=== PATIENT | female | born 1955 | race African-American/Black ===

== ENCOUNTER 2017-04-16 20:33 | Emergency (ER) | payer MEDICARE, MEDICAID ==
[~2017-04-16] VITALS: Ht 170.2 cm; Wt 74.0 kg
[~2017-04-16 20:33] MED LIST: ALBUAER3 INH; ALEV220T14 PO; ALPR.5 PO; ASPI81TA23 PO; ATAZ200 PO; BENZ100 PO; CARV25TA PO; CELE20TA PO; CLON0.2T PO; DOCU100C15 PO; EPZITAB3 PO; FLUT1SPR5 EACH NARE; HYDR-3133 PO; LEVA500T33 PO; METF1000 PO; NEBUKIT5; NEBULIZER1 MI1; ONDA4TAB7 SL; OXYC-392 PO; OXYGENTANK NAS.CANULA; PALI1TAB2 PO; PERI8.6T PO; PRED20 PO; PREV30CA36 PO; ROSU1TAB4 PO; VALA1TAB PO
[2017-04-16 20:34] VITALS: BP 162/74; PULSE 91; RESP 16; TEMP 98.6; O2SAT 98
[2017-04-16] MEDS ORDERED: AMLO10TA2 PO (21:40)
[2017-04-16] MEDS ORDERED: MIRTA15 PO (21:40)
[2017-04-16] MEDS ORDERED: INVE3TAB2 PO (21:40)
[2017-04-16] MEDS ORDERED: FURO20TA PO (21:40)
[2017-04-16] MEDS ORDERED: SODIUM CHLOR 0.9% 1000 ML INJ 1,000 ML IV ONE (21:45)
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
[2017-04-16 22:39] LABS: AUTOMATED NEUTROPHIL # 6.8 TH/MM3 (1.8-7.7); BASOPHIL % 0.5 % (0.0-2.0); EOSINOPHIL # 0.1 TH/MM3 (0-0.4); EOSINOPHIL % 1.1 % (0.0-4.0); HEMATOCRIT 40.3 % (35.0-46.0); HEMOGLOBIN 13.1 GM/DL (11.6-15.3); LYMPH % 24.8 % (9.0-44.0); LYMPHOCYTE # 2.5 TH/MM3 (1.0-4.8); MEAN CELL VOLUME 95.5 FL (80.0-100.0); MEAN CORPUSCULAR HGB CONC 32.4 % (32.0-36.0); MEAN PLATELET VOLUME 9.4 FL (7.0-11.0); MONO % 5.8 % (0.0-8.0); MONOCYTE # 0.6 TH/MM3 (0-0.9); NEUT % 67.8 % (16.0-70.0); PLATELET COUNT 255 TH/MM3 (150-450); RED BLOOD COUNT 4.22 MIL/MM3 (4.00-5.30); RED CELL DISTRIBUTION WIDTH 15.1 % (11.6-17.2); WHITE BLOOD COUNT 10.1 TH/MM3 (4.0-11.0)
[2017-04-16 22:39] LABS: BACTERIA, URINE RARE /hpf; BILIRUBIN, URINE NEG (NEG); BLOOD, URINE NEG (NEG); GLUCOSE,URINE 1000 mg/dL (NEG); KETONE, URINE NEG (NEG); MUCUS URINE FEW /lpf (OCC); NITRITE,URINE NEG (NEG); SQUAMOUS EPITHELIAL CELL URINE 2 /hpf (0-5); URINE COLOR LIGHT-YELLOW (YELLW/STRAW); URINE LEUKOCYTE ESTERASE NEG (NEG)
[2017-04-16 22:56] LABS: ALBUMIN 3.6 GM/DL (3.4-5.0); AST (GOT) 29 U/L (15-37); BICARBONATE 31.5 MEQ/L (21.0-32.0); BLOOD UREA NITROGEN 38 MG/DL (7-18); CALCIUM 8.9 MG/DL (8.5-10.1); CHLORIDE 87 MEQ/L (98-107); CREATININE 2.18 MG/DL (0.50-1.00); GLOMERULAR FILTRATION RATE 28 ML/MIN (>89); MAGNESIUM 2.6 MG/DL (1.5-2.5); SODIUM (NA) 128 MEQ/L (136-145)
[2017-04-16 23:02] LABS: ALKALINE PHOSPHATASE 138 U/L (45-117); ALT (GPT) 45 U/L (10-53); TOTAL BILIRUBIN ADULT 0.3 MG/DL (0.2-1.0); TOTAL PROTEIN 8.4 GM/DL (6.4-8.2)
[2017-04-16 23:03] LABS: GLUCOSE,RANDOM 630 MG/DL (74-106)
--- NOTE | 2017-04-16 23:10 | PD ---
Physical Exam Date Seen by Provider: Apr 16, 2017 Time Seen by Provider: 23:09 Narrative GENERAL: Well-developed, pleasant elderly female in no acute distress no respiratory distress GCS 15 SKIN: Warm and dry. HEAD: Normocephalic. EYES: No scleral icterus. No injection or drainage. ENT: Edentulous NECK: Supple, trachea midline. No JVD or lymphadenopathy. CARDIOVASCULAR: Regular rate and rhythm without murmurs, gallops, or rubs. RESPIRATORY: Breath sounds equal bilaterally. No accessory muscle use. GASTROINTESTINAL: Abdomen soft, non-tender, nondistended. MUSCULOSKELETAL: No cyanosis, or edema. BACK: Nontender without obvious deformity. No CVA tenderness. Data Data Last Documented VS Vital Signs Date Time Temp Pulse Resp B/P (MAP) Pulse Ox O2 Delivery O2 Flow Rate FiO2 04/16/17 20:34 98.6 91 16 162/74 (103) 98 Room Air Orders Orders Complete Blood Count With Diff (04/16/17 21:43) Comprehensive Metabolic Panel (04/16/17 21:43) Urinalysis - C+S If Indicated (04/16/17 21:43) Magnesium (Mg) (04/16/17 21:43) Iv Access Insert/Monitor (04/16/17 21:43) Ecg Monitoring (04/16/17 21:43) Oximetry (04/16/17 21:43) Blood Glucose (04/16/17 21:43) Beta Hydroxybutyrate (Acetone) (04/16/17 21:43) Sodium Chlor 0.9% 1000 Ml Inj (Ns 1000 M (04/16/17 21:45) Insulin Human Regular Inj (Novolin R Inj (04/16/17 23:15) Blood Glucose (04/16/17 23:03) Ed Discharge Order (04/17/17 02:04) Labs Laboratory Tests Test 04/16/17 22:00 04/16/17 22:06 White Blood Count 10.1 TH/MM3 Red Blood Count 4.22 MIL/MM3 Hemoglobin 13.1 GM/DL Hematocrit 40.3 % Mean Corpuscular Volume 95.5 FL Mean Corpuscular Hemoglobin 31.0 PG Mean Corpuscular Hemoglobin Concent 32.4 % Red Cell Distribution Width 15.1 % Platelet Count 255 TH/MM3 Mean Platelet Volume 9.4 FL Neutrophils (%) (Auto) 67.8 % Lymphocytes (%) (Auto) 24.8 % Monocytes (%) (Auto) 5.8 % Eosinophils (%) (Auto) 1.1 % Basophils (%) (Auto) 0.5 % Neutrophils # (Auto) 6.8 TH/MM3 Lymphocytes # (Auto) 2.5 TH/MM3 Monocytes # (Auto) 0.6 TH/MM3 Eosinophils # (Auto) 0.1 TH/MM3 Basophils # (Auto) 0.0 TH/MM3 CBC Comment DIFF FINAL Differential Comment Blood Urea Nitrogen 38 MG/DL Creatinine 2.18 MG/DL Random Glucose 630 MG/DL Total Protein 8.4 GM/DL Albumin 3.6 GM/DL Calcium Level 8.9 MG/DL Magnesium Level 2.6 MG/DL Alkaline Phosphatase 138 U/L Aspartate Amino Transf (AST/SGOT) 29 U/L Alanine Aminotransferase (ALT/SGPT) 45 U/L Total Bilirubin 0.3 MG/DL Sodium Level 128 MEQ/L Potassium Level 4.2 MEQ/L Chloride Level 87 MEQ/L Carbon Dioxide Level 31.5 MEQ/L Anion Gap 10 MEQ/L Estimat Glomerular Filtration Rate 28 ML/MIN B-Hydroxybutyrate 0.18 MMOL/L Urine Color LIGHT-YELLOW Urine Turbidity CLEAR Urine pH 5.0 Urine Specific [place] 1.028 Urine Protein NEG mg/dL Urine Glucose (UA) 1000 mg/dL Urine Ketones NEG mg/dL Urine Occult Blood NEG Urine Nitrite NEG Urine Bilirubin NEG Urine Urobilinogen LESS THAN 2.0 MG/DL Urine Leukocyte Esterase NEG Urine RBC LESS THAN 1 /hpf Urine WBC 2 /hpf Urine Squamous Epithelial Cells 2 /hpf Urine Bacteria RARE /hpf Urine Mucus FEW /lpf Microscopic Urinalysis Comment CULT NOT INDICATED [facility] Medical Record Reviewed: Yes Supervised Visit with KATHRYN: Yes Interpretation(s) CBC & BMP Diagram 04/16/17 22:00 Total Protein 8.4 H, Albumin 3.6, Calcium Level 8.9, Magnesium Level 2.6 H, Alkaline Phosphatase 138 H, Aspartate Amino Transf (AST/SGOT) 29, Alanine Aminotransferase (ALT/SGPT) 45, Total Bilirubin 0.3 Vital Signs Date Time Temp Pulse Resp B/P (MAP) Pulse Ox O2 Delivery O2 Flow Rate FiO2 04/16/17 20:34 98.6 91 16 162/74 (103) 98 Room Air Beta hydroxybutyric acid 0.18 not elevated Urinalysis: Glucosuria otherwise eyes normal range Differential Diagnosis hyperglycemia;dka; dehydration;electrolyte disturbance Narrative Course @ 2300 assumed direct care of patient; 7-year-old female with multiple chronic medical conditions as well as type 2 diabetes for which she is prescribed metformin 1000 mg twice daily. Patient admits to not take the medication on a regular basis and not taking the dose that is prescribed for her as she did not know she needed to take the entire dose of the medication but did not like to take medication as the pill size was too large. Patient is also been increasing her consumption of peppermint candies on a regular basis because she feels like her mouth is dry as well as eating pie and sugary sweets over the holidays. Because of increased thirst and increased urination finally decided to check her blood sugar and was identified to have a high blood sugars and decided come to the emergency room for evaluation. Patient denies any other concerns or complaints no report of chest pain shortness breath nausea vomiting referred neck jaw back shoulder arm pain or abdominal pain. Patient has received a 500 cc bolus of normal saline as patient was noted with last hospitalization to have poor ejection fraction and recent diagnosis of CHF. Patient also received a one-time dose of regular insulin and is having blood sugars checked every hour 3. Patient with family at bedside requesting information regarding [employer] diet information. Patient is otherwise with no concerns or complaints no recent illness no recent fever no recent injury. @ 12:45 AM B, patient given healthy choice meal and recheck of BG at 1 hour @ 0200BG 264 patient feels well and is stable for outpatient management Diagnosis Primary Impression: Hyperglycemia due to type 2 diabetes mellitus Additional Impression: Renal insufficiency Referrals: Primary Care Physician 3 days Schedule appointment with primary care provider as planned Patient Instructions: General Instructions, Meal Planning with Diabetes Exchanges (DC) Additional Instruction: Take prescription medication as prescribed Follow-up ADA diet Increase fluid hydration Keep scheduled follow-up appointment with primary care provider as planned Return to the emergency department for a concerns or change in condition Monitor blood sugars closely Med/Other Pt SpecificInfo: No Change to Meds Disposition: 01 DISCHARGE HOME Condition: Stable Luzmaria Rubio MD Apr 16, 2017 23:10
[2017-04-16] MEDS ORDERED: INSULIN HUMAN REGULAR 1,000 UNITS/10 ML VIAL IV PUSH ONE (23:15)
[2017-04-17 02:10] VITALS: BP 140/75
[2017-04-20] MEDS ORDERED: SYMB160A INH (09:11)
[2017-04-20] MEDS ORDERED: GLIP10TA6 PO (09:18)
[2017-04-20] MEDS ORDERED: BENZ1CAP54 PO (09:23)
== END 2017-04-17 02:15 | disposition home or self-care (01) ==
LOC: NEPC 20:33
DX: E11.65 Type 2 diabetes mellitus with hyperglycemia (principal); N28.9 Disorder of kidney and ureter, unspecified; F31.9 Bipolar disorder, unspecified; I10 Essential (primary) hypertension; F20.9 Schizophrenia, unspecified; J45.909 Unspecified asthma, uncomplicated; Z86.19 Personal history of other infectious and parasitic diseases; Z86.73 Personal history of transient ischemic attack (TIA), and cerebral infarction without residual deficits; Z21 Asymptomatic human immunodeficiency virus [HIV] infection status
CPT/HCPCS: 80053; 81001; 82010; 83735; 85025; 96361; 96374; 99284; J1815; J7030

== ENCOUNTER 2017-05-08 13:48 | Inpatient (IN) | payer MEDICARE, MEDICAID ==
[2017-05-08] VITALS (10 sets, daily range): BP systolic 109–163; BP diastolic 53–80; PULSE 65–82; RESP 16–22; TEMP 97.7–98.6; O2SAT 95–100
[~2017-05-08] VITALS: Ht 170.2 cm; Wt 72.7 kg
[~2017-05-08 13:48] MED LIST changes: -ATAZ200 PO; -BENZ100 PO; +BENZ1CAP54 PO; -EPZITAB3 PO; +FURO20TA PO; +GLIP10TA6 PO; +INVE3TAB2 PO; -LEVA500T33 PO; +MIRTA15 PO; -PERI8.6T PO; -PRED20 PO; +SYMB160A INH; -VALA1TAB PO
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
[2017-05-08] MEDS ORDERED: ONDANSETRON HCL 4 MG/2 ML VIAL IVP ONE (14:45)
[2017-05-08] MEDS ORDERED: SODIUM CHLORIDE 0.9% FLUSH 10 ML FLUSH IVF PRN (14:45)
[2017-05-08 15:18] LABS: AUTOMATED NEUTROPHIL # 5.6 TH/MM3 (1.8-7.7); BASOPHIL % 0.6 % (0.0-2.0); EOSINOPHIL # 0.2 TH/MM3 (0-0.4); EOSINOPHIL % 2.5 % (0.0-4.0); HEMATOCRIT 39.5 % (35.0-46.0); LYMPH % 23.2 % (9.0-44.0); MEAN CELL VOLUME 94.4 FL (80.0-100.0); MEAN CORPUSCULAR HGB CONC 32.9 % (32.0-36.0); MEAN PLATELET VOLUME 8.6 FL (7.0-11.0); MONO % 8.5 % (0.0-8.0); MONOCYTE # 0.7 TH/MM3 (0-0.9); NEUT % 65.2 % (16.0-70.0); PLATELET COUNT 292 TH/MM3 (150-450); RED BLOOD COUNT 4.19 MIL/MM3 (4.00-5.30); RED CELL DISTRIBUTION WIDTH 15.2 % (11.6-17.2); WHITE BLOOD COUNT 8.5 TH/MM3 (4.0-11.0)
[2017-05-08 15:28] LABS: INTERNATIONAL NORMALIZED RATIO 1.1 RATIO
--- NOTE | 2017-05-08 15:33 | RADRPT ---
EXAM DATE/TIME: 05/08/2017 14:45 [place] COMPARISON: CHEST SINGLE AP, February 25, 2016, 6:36. INDICATIONS : Weakness. Short of breath. MEDICAL HISTORY : Hypertension. HIV. Diabetes mellitus type II. SURGICAL HISTORY : None. ENCOUNTER: Initial ACUITY: 1 day PAIN SCORE: 0/10 LOCATION: Bilateral chest FINDINGS: Single AP view of the chest. The lungs are clear. Cardiomediastinal silhouette within normal limits. No evidence of pleural effusion or pneumothorax. CONCLUSION: No acute cardiopulmonary disease identified. Messi Mensah MD on May 08, 2017 at 15:29 Board Certified Radiologist. This report was verified electronically.
[2017-05-08 15:41] LABS: ALBUMIN 3.6 GM/DL (3.4-5.0); ALT (GPT) 20 U/L (10-53); AST (GOT) 21 U/L (15-37); BICARBONATE 24.9 MEQ/L (21.0-32.0); BLOOD UREA NITROGEN 26 MG/DL (7-18); CALCIUM 9.5 MG/DL (8.5-10.1); CHLORIDE 93 MEQ/L (98-107); CREATININE 1.49 MG/DL (0.50-1.00); GLOMERULAR FILTRATION RATE 43 ML/MIN (>89); GLUCOSE,RANDOM 126 MG/DL (74-106); SODIUM (NA) 133 MEQ/L (136-145)
[2017-05-08 15:43] LABS: ALKALINE PHOSPHATASE 83 U/L (45-117); TOTAL BILIRUBIN ADULT 0.4 MG/DL (0.2-1.0); TOTAL PROTEIN 8.4 GM/DL (6.4-8.2); TROPONIN I LESS THAN 0.02 NG/ML (0.02-0.05)
[2017-05-08] MEDS ORDERED: PIPERACIL-TAZO 4.5 GM PREMIX 100 ML IV STA (16:22)
[2017-05-08] MEDS ORDERED: VANCOMYCIN INJ 1,000 MG in SODIUM CHLOR 0.9% 250 ML INJ 250 ML IV STA (16:22)
[2017-05-08] MEDS ORDERED: SODIUM CHLOR 0.9% 1000 ML INJ 1,000 ML IV ONE (16:30)
[2017-05-08 17:49] LABS: BACTERIA, URINE OCC /hpf; BILIRUBIN, URINE NEG (NEG); BLOOD, URINE NEG (NEG); GLUCOSE,URINE TRACE mg/dL (NEG); HYALINE CAST, URINE 37 /lpf (RARE); KETONE, URINE NEG (NEG); MUCUS URINE FEW /lpf (OCC); NITRITE,URINE NEG (NEG); PH, URINE 5.5 (5.0-8.5); SQUAMOUS EPITHELIAL CELL URINE 7 /hpf (0-5); URINE COLOR YELLOW (YELLW/STRAW); URINE LEUKOCYTE ESTERASE NEG (NEG)
[2017-05-08] MEDS ORDERED: IOHEXOL 350 MG/ML 10 ML VIAL (for RAD DIAG) IVCONTRAST ONE (18:40)
--- NOTE | 2017-05-08 18:49 | RADRPT ---
EXAM DATE/TIME: 05/08/2017 18:23 CORRECTION Corrected on: May 08, 2017; [facility] COMPARISON: No previous studies available for comparison. INDICATIONS : Lower abdominal pain today. IV CONTRAST: 70 cc Omnipaque 350 (iohexol) IV ORAL CONTRAST: No oral contrast ingested. RADIATION DOSE: 6.64 CTDIvol (mGy) MEDICAL HISTORY : HIV. Hepatitis C. Hypertension. SURGICAL HISTORY : Hysterectomy. ENCOUNTER: Initial ACUITY: 1 day PAIN SCALE: 7/10 LOCATION: Bilateral lower quadrant TECHNIQUE: Volumetric scanning of the abdomen and pelvis was performed. Using automated exposure control and ad justment of the mA and/or kV according to patient size, radiation dose was kept as low as reasonably achievable to obtain optimal diagnostic quality images. DICOM format image data is available electro nically for review and comparison. FINDINGS: LOWER LUNGS: The visualized lower lungs are clear. LIVER: Homogeneous density without lesion. There is no dilation of the biliary tree. No calcified gallston es. SPLEEN: Normal size without lesion. PANCREAS: Within normal limits. KIDNEYS: Normal in size and shape. There is no mass, stone or hydronephrosis. ADRENAL GLANDS: Within normal limits. VASCULAR: Tortuosity and atherosclerotic plaque of the abdominal aorta. No aneurysm. Apparent mild edema around the aorta at the level of the renal artery and superior mesenteric artery branches. There appears to be some poor filling of these vessels, especially the right renal artery. BOWEL/MESENTERY: The stomach, small bowel, and colon demonstrate no acute abnormality. There is no free intraperitone al air or fluid. Normal appendix. ABDOMINAL WALL: Within normal limits. RETROPERITONEUM: There is no lymphadenopathy. BLADDER: No wall thickening or mass. REPRODUCTIVE: Within normal limits. INGUINAL: There is no lymphadenopathy or hernia. MUSCULOSKELETAL: No acute bony abnormality demonstrated. CONCLUSION: Potential focal aortitis or branch vessel thrombosis the of the upper abdominal aorta. CTA of the abd omen with contrast is recommended. Please see above. Report called to Dr. Chanel. Jonathan Carmen MD on May 08, 2017 at 18:45 Board Certified Radiologist. This report was verified electronically. Jonathan Carmen MD on May 08, 2017 at 18:53 Board Certified Radiologist. This report was verified electronically.
--- NOTE | 2017-05-08 19:22 | RADRPT ---
EXAM DATE/TIME: 05/08/2017 18:24 [facility] COMPARISON: CT ABDOMEN & PELVIS W CONTRAST, May 08, 2017, 18:23. INDICATIONS : Abdominal pain; rule out occlusion. IV CONTRAST: 70 cc Omnipaque 350 (iohexol) IV ; Cumulative dose for multiple exams. ORAL CONTRAST: No oral contrast ingested. RADIATION DOSE: CTDIvol (mGy) ; Reconstructed from previous dataset, no dose MEDICAL HISTORY : HIV, hepatitis C, hypertension SURGICAL HISTORY : Hysterectomy ENCOUNTER: Initial ACUITY: 1 day PAIN SCALE: 6/10 LOCATION: abdomen TECHNIQUE: Volumetric scanning was performed using a multi-row detector CT scanner. The data was post processed with a variety of visualization algorithms including full volume maximum intensity projection, multi -planar sliding thin slab reformation, curved planar reformation, and surface rendering techniques. Using automated exposure control and adjustment of the mA and/or kV according to patient size, radiat ion dose was kept as low as reasonably achievable to obtain optimal diagnostic quality images. DICOM format image data is available electronically for review and comparison. FINDINGS: Patient's GFR is 43. Multiplanar reconstructions were done of the original data set. Thoracic aorta i s mildly tortuous. There is patchy atherosclerosis of the aorta and branch vessels without evidence o f occlusion. There are a few small retrocrural and aortocaval lymph nodes. No fluid collections are d emonstrated. CONCLUSION: Additional contrast was not injected secondary to poor GFR. The multiplanar reconstructions indicate atherosclerosis and tortuosity of the abdominal aorta and branch vessels but without evidence of infl ammatory changes or acute thrombosis. Bilateral renal parenchyma enhances normally. There are no seco ndary changes of the bowel to suggest ischemia. There is shotty retroperitoneal adenopathy. Nothing p athologic appearing by size criteria. Jonathan Carmen MD on May 08, 2017 at 19:14 Board Certified Radiologist. This report was verified electronically.
[2017-05-08] MEDS ORDERED: ENOXAPARIN SODIUM 40 MG/0.4 ML SYRINGE SQ SCH (20:00)
[2017-05-08] MEDS ORDERED: SODIUM CHLORIDE 0.9% FLUSH 10 ML FLUSH IV FLUSH PRN (20:00)
[2017-05-08] MEDS ORDERED: BISACODYL 10 MG SUPP RECTAL PRN (20:00)
[2017-05-08] MEDS: ENOXAPARIN SODIUM 30 MG/0.3 ML SYRINGE SQ SCH (20:00)
[2017-05-08] MEDS ORDERED: LACTULOSE SYRUP 20 GM/30 ML CUP PO PRN (20:00)
[2017-05-08] MEDS ORDERED: ACETAMINOPHEN 325 MG TAB PO PRN (20:00)
[2017-05-08] MEDS ORDERED: NALOXONE HCL 0.4 MG/ML AMP IV PUSH PRN (20:00)
[2017-05-08] MEDS ORDERED: MAGNESIUM HYDROXIDE SUSP 30 ML CUP PO PRN (20:00)
[2017-05-08] MEDS ORDERED: SENNOSIDES 8.6 MG TAB PO PRN (20:00)
--- NOTE | 2017-05-08 20:28 | HHI.HP ---
[facility] Service Family Medicine Primary Care Physician Moreno Cannon MD Admission Diagnosis lactic acidosis, abdominal pain, syncope Diagnoses: Chief Complaint: Passed out International Travel<30 Days: No Contact w/Intl Traveler<30days: No Known Affected Area: No History of Present Illness 61-year-old female with past medical history of HIV, hepatitis C, coronary artery disease, diabetes, hypertension, and COPD presenting with a syncopal episode occurring this morning at mosque in the context of 3 days of nausea and vomiting with meals. In mosque this morning, she felt a sudden heat and then felt very fatigued and lightheaded. The next thing she remembers was waking up in the arms of her crm analyst's . She did not hit her head. She did not have any prodromal symptoms including palpitations, chest pain, shortness of breath. For the last few days she has been having nausea and vomiting after the majority of her meals. Mild diffuse abdominal queasiness, but no focal abdominal pain. There have been no changes to her medications, she has not started taking anything new [id number] since her most recent office visit with Dr. Cannon on 04/28. (Umair Davidson MD) Review of Systems Constitutional: COMPLAINS OF: Fatigue, DENIES: Fever, Chills, Dizziness Endocrine: DENIES: Heat/cold intolerance, Polydipsia, Polyuria Eyes: COMPLAINS OF: Blurred vision (not new), DENIES: Eye pain Ears, nose, mouth, throat: DENIES: Nasal discharge, Throat pain Respiratory: COMPLAINS OF: Cough (chronic), DENIES: Wheezing, Sputum production , Shortness of breath Cardiovascular: COMPLAINS OF: Syncope, DENIES: Chest pain, Palpitations, Dyspnea on Exertion, Lower Extremity Edema, Orthopnea Gastrointestinal: COMPLAINS OF: Nausea, Vomiting, DENIES: Abdominal pain, Diarrhea Genitourinary: DENIES: Abnormal vaginal bleeding, Urinary frequency, Dysuria, Vaginal discharge Musculoskeletal: COMPLAINS OF: Joint pain (h/o arthritis) Integumentary: DENIES: Rash Hematologic/lymphatic: DENIES: Bruising Neurologic: DENIES: Headache, Localized weakness Psychiatric: DENIES: Confusion, Mood changes (Umair Davidson MD) Past Family Social History Past Medical History HIV (sees ID: Dr. Waddell) ) Hep C depression (sees psychiatrist: Titi Culp ([phone]) Schizoaffective disorder Diabetes HSV Anemia/neutropenia GERD Hypertension NM x1 CHF COPD - Hypoxia requiring oxygen Past Surgical History Hysterectomy Colonoscopy/EGD/Pap smear: 2012 all negative Reported Medications Reported Meds & Active Scripts Active Benzonatate 100 Mg Cap 100 Mg PO TID PRN Symbicort Inh (Budesonide/Formoterol Fumarate) 160-4.5 Mcg/Act Aero 2 Puff INH Q12HR Flonase Nasal [place] (Fluticasone Nasal [place]) 50 Mcg/Act [place] 50 Mcg EACH NARE BID Xanax (Alprazolam) 0.5 Mg Tab 0.5 Mg PO Q6H PRN Nebulizer 1 Mis Mis 1 Ea .ROUTE DIRECTED Nebulizer Kit/Tubing/Mout (N/A) 1 Kit Kit 1 Kit .ROUTE DIRECTED Oxygen tank (Oxygen) 1 Ea Tank 2 Liter LUCILLE.CANULA CONTINUOUS Oxygen Concentrator Portable Gaseous 2 L/min via Nasal Cannula Continuous For 99 months Hydroxyzine HCl 25 Mg Tab 25 Mg PO HS PRN Clonidine (Clonidine HCl) 0.2 Mg Tab 0.2 Mg PO DAILY Aspirin EC (Aspirin) 81 Mg Tabdr 81 Mg PO DAILY Reported Glipizide 10 Mg Tab 10 Mg PO BIDAC Take 30 minutes before a meal Mirtazapine 15 Mg Tab 15 Mg PO HS Furosemide 20 Mg Tab 20 Mg PO DAILY Oxycodone (Oxycodone HCl) 5 Mg Tab 5 Mg PO BID PRN Aleve Arthritis (Naproxen Sodium) 220 Mg Tab 220 Mg PO BID Proair Hfa 8.5 GM Inh (Albuterol Sulfate) 90 Mcg/Act Aer 2 Puff INH Q4-6H PRN 108 mcg/actuation Celexa (Citalopram Hydrobromide) 20 Mg Tab 20 Mg PO DAILY Paliperidone ER 3 Mg Tab 3 Mg PO DAILY Prevacid (Lansoprazole) 30 Mg Capdr 30 Mg PO BID Ondansetron Odt 4 Mg Tab 4 Mg SL Q6HR PRN Rosuvastatin (Rosuvastatin Calcium) 5 Mg Tab 5 Mg PO DIRECTED Take 1 tablet PO on Tue/Tuesday Carvedilol 25 Mg Tab 25 Mg PO BID Metformin (Metformin HCl) 1,000 Mg Tab 1,000 Mg PO BIDPC With meals Docusate Sodium 100 Mg Cap 100 Mg PO BID Genvoya 1 tab PO daily (Umair Davidson MD) Allergies: Coded Allergies: No Known Allergies (Verified Adverse Reaction, Unknown, 05/08/17) Active Ordered Medications Current Medications Medications (Trade) Dose Ordered Sig/Herbert Route Start Time Stop Time Status Last Admin (NS Flush) 2 ml UNSCH PRN IVF 05/08/17 14:45 05/08/17 14:55 (NS Flush) 2 ml UNSCH PRN IV FLUSH 05/08/17 20:00 (NS Flush) 2 ml BID IV FLUSH 05/08/17 21:00 (Tylenol) 650 mg Q4H PRN PO 05/08/17 20:00 (Narcan Inj) 0.4 mg UNSCH PRN IV PUSH 05/08/17 20:00 (Lizeth-Colace) 1 tab BID PO 05/08/17 21:00 (Milk Of Magnesia Liq) 30 ml Q12H PRN PO 05/08/17 20:00 (Senokot) 17.2 mg Q12H PRN PO 05/08/17 20:00 (Dulcolax Supp) 10 mg DAILY PRN RECTAL 05/08/17 20:00 (Lactulose Liq) 30 ml DAILY PRN PO 05/08/17 20:00 (Lovenox Inj) 30 mg Q24H SQ 05/08/17 20:00 (Proair Hfa Inh) 2 puff Q4H PRN INH 05/08/17 20:30 (Xanax) 0.5 mg Q6H PRN PO 05/08/17 20:30 (Ecotrin Ec) 81 mg DAILY PO 05/09/17 09:00 (Symbicort 160-4.5 Mcg Inh) 2 puff Q12HR INH 05/08/17 21:00 (Coreg) 25 mg BID PO 05/08/17 21:00 (CeleXA) 20 mg DAILY PO 05/09/17 09:00 (Catapres) 0.2 mg DAILY PO 05/09/17 09:00 (Lasix) 20 mg DAILY PO 05/09/17 09:00 (Remeron) 15 mg HS PO 05/08/17 21:00 (Invega Er) 3 mg DAILY PO 05/09/17 09:00 (Flonase Lucille Spr) 1 spray BID NASAL 05/08/17 21:00 (Protonix) 40 mg BID PO 05/08/17 21:00 (Naprosyn) 250 mg BID PO 05/08/17 21:00 (Lipitor) 10 mg WeFr@0900 PO 05/11/17 09:00 (D50w (Vial) Inj) 50 ml UNSCH PRN IV PUSH 05/08/17 20:30 (Glucagon Inj) 1 mg UNSCH PRN OTHER 05/08/17 20:30 (Levemir Inj) 10 units Q12HR SQ 05/08/17 21:00 (NovoLOG INJ) 3 units TIDAC SQ 05/09/17 08:00 Family History Negative for stroke Social History Lives with at home. Not working. Disabled. (Umair Davidson MD) Physical Exam Vital Signs Vital Signs Date Time Temp Pulse Resp B/P (MAP) Pulse Ox O2 Delivery O2 Flow Rate FiO2 05/08/17 17:12 71 16 134/64 (87) 95 Nasal Cannula 2.00 05/08/17 16:00 68 22 125/67 (86) 95 Nasal Cannula 2.00 05/08/17 15:00 66 16 112/60 (77) 98 Nasal Cannula 2.00 05/08/17 14:35 16 100 Room Air 05/08/17 14:31 68 16 99 Room Air 05/08/17 14:23 98.2 65 16 109/53 (71) 96 Room Air Physical Exam GENERAL: WDWN late middle-aged black woman sitting up in bed, comfortable, NAD SKIN: No rashes, ecchymoses or lesions. Cool and dry. HEAD: NC/AT EYES: PERRL. EOMI. No conjunctival injection or drainage. ENT: MMM, OP without erythema, tonsillar swelling, or exudate. Small cataract in R eye. NECK: Supple, no lymphadenopathy. No JVD. CARDIOVASCULAR: NRRR. Normal S1/S2. Soft, blowing, 2/6 DIONNE at LUSB. No carotid bruit. RESPIRATORY: Diffuse inspiratory wheezes. No crackles. Normal rate and effort with good air flow bilaterally. GASTROINTESTINAL: Abdomen soft, non-distended, minimally tender to palpation diffusely. No hepato-splenomegaly or palpable masses. MUSCULOSKELETAL: Extremities without clubbing, cyanosis, or edema. NEUROLOGICAL: Awake and alert. Cranial nerves II through XII grossly intact. Moves all extremities without difficulty. Strength 5/5 in all major muscle groups. Sensation to light touch intact throughout. Normal speech. Laboratory Laboratory Tests Test 05/08/17 14:40 05/08/17 16:45 05/08/17 17:05 05/08/17 20:08 White Blood Count 8.5 Red Blood Count 4.19 Hemoglobin 13.0 Hematocrit 39.5 Mean Corpuscular Volume 94.4 Mean Corpuscular Hemoglobin 31.0 Mean Corpuscular Hemoglobin Concent 32.9 Red Cell Distribution Width 15.2 Platelet Count 292 Mean Platelet Volume 8.6 Neutrophils (%) (Auto) 65.2 Lymphocytes (%) (Auto) 23.2 Monocytes (%) (Auto) 8.5 Eosinophils (%) (Auto) 2.5 Basophils (%) (Auto) 0.6 Neutrophils # (Auto) 5.6 Lymphocytes # (Auto) 2.0 Monocytes # (Auto) 0.7 Eosinophils # (Auto) 0.2 Basophils # (Auto) 0.0 CBC Comment DIFF FINAL Differential Comment Prothrombin Time 11.0 Prothromb Time International Ratio 1.1 Activated Partial Thromboplast Time 23.7 Blood Urea Nitrogen 26 Creatinine 1.49 Random Glucose 126 Total Protein 8.4 Albumin 3.6 Calcium Level 9.5 Magnesium Level 2.0 Alkaline Phosphatase 83 Aspartate Amino Transf (AST/SGOT) 21 Alanine Aminotransferase (ALT/SGPT) 20 Total Bilirubin 0.4 Sodium Level 133 Potassium Level 3.4 Chloride Level 93 Carbon Dioxide Level 24.9 Anion Gap 15 Estimat Glomerular Filtration Rate 43 Lactic Acid Level 4.1 3.5 Total Creatine Kinase 102 Creatine Kinase MB 1.1 Troponin I LESS THAN 0.02 Urine Color YELLOW Urine Turbidity HAZY Urine pH 5.5 Urine Specific [place] 1.021 Urine Protein 30 Urine Glucose (UA) TRACE Urine Ketones NEG Urine Occult Blood NEG Urine Nitrite NEG Urine Bilirubin NEG Urine Urobilinogen 2.0 Urine Leukocyte Esterase NEG Urine RBC 1 Urine WBC 3 Urine Squamous Epithelial Cells 7 Urine Bacteria OCC Urine Hyaline Casts 37 Urine Mucus FEW Microscopic Urinalysis Comment CULT NOT INDICATED Date/Time Source Procedure Growth Status 05/08/17 17:05 Blood Peripheral Aerobic Blood Culture Pending Received 05/08/17 17:05 Blood Peripheral Anaerobic Blood Culture Pending Received (Umair Davidson MD) Result Diagram: 05/08/17 1440 05/08/17 1440 Imaging Last Impressions Chest X-Ray 05/08/17 1432 Signed Impressions: Service Date/Time: Monday, May 08, 2017 14:45 - CONCLUSION: No acute cardiopulmonary disease identified. Messi Mensah MD Abdomen/Pelvis CT 05/08/17 0000 Signed Impressions: Service Date/Time: Monday, May 08, 2017 18:24 - CONCLUSION: Additional contrast was not injected secondary to poor GFR. The multiplanar reconstructions indicate atherosclerosis and tortuosity of the abdominal aorta and branch vessels but without evidence of inflammatory changes or acute thrombosis. Bilateral renal parenchyma enhances normally. There are no secondary changes of the bowel to suggest ischemia. There is shotty retroperitoneal adenopathy. Nothing pathologic appearing by size criteria. Jonathan Carmen MD (Umair Davidson MD) Septic Shock Reassessment Septic shock perfusion: reassessment completed (Umair Davidson MD) Caprini VTE Risk Assessment Caprini VTE Risk Assessment: Mod/High Risk (score >= 2) (Umair Davidson MD) Assessment and Plan Assessment and Plan 61-year-old female with past medical history of HIV, hepatitis C, coronary artery disease, diabetes, hypertension, and COPD presenting with: (Umair Davidson MD) Attending Attestation THIS CASE WAS DISCUSSED WITH THE RESIDENT PHYSICIANS. I HAVE REVIEWED THE RECORD AND AGREE WITH THE ABOVE NOTE AND PLAN OF CARE WAS DISCUSSED. I HAVE AUTHORIZED THE ORDER FOR ADMISSION TO AN IN-PATIENT STATUS. (Moreno Cnanon MD) Problem List: (1) Syncope ICD Codes: R55 - Syncope and collapse Status: Acute Plan: History consistent with syncopal episode, now clinically well-appearing. Likely etiology is hypotension/orthostasis due to vomiting. BP on admission borderline low for patient (110s, patient baseline in office well above 150) Initial troponin < 0.02 Echo in 2016 with moderate to severe MR, EF of 30-35% EKG with left axis deviation, NSR with normal rate, no ST-T segment changes Heart murmur on exam, not new per patient. Neurologic exam non-focal. - Telemetry for at least 24 hours; if no events, can be discontinued - Trend troponin, EKG - 2D Echo for EF assessment, r/o worsening valvular disease, though suspicion is low - Check TSH - Check orthostatic VS - OOB with assistance (2) Nausea & vomiting ICD Codes: R11.2 - Nausea with vomiting, unspecified Status: Resolved Plan: Now resolved. Unclear etiology, but history could be consistent with viral gastroenteritis. CT abdomen/pelvis reassuring - findings discussed with radiologist Dr. Carmen, no suspicion for acute mesenteric ischemia Lipase normal S/p 1 L bolus of NS - Replete potassium orally - Monitor BMP - Encourage PO fluids - Phenergan PRN (less QT prolongation than Zofran) (3) Lactic acidosis ICD Codes: E87.2 - Acidosis Status: Resolved Plan: Lactic acid elevated on admission. Unclear etiology but patient has polypharmacy and dehydration; metformin use plus dehydration may combine to explain lactic acidosis. Lactic acid 4.1, repeat at 2h was 3.5 (after 1 L IVF) CT findings as noted above not concerning for mesenteric ischemia, physical exam and history benign No indication for IV antibiotics at this time; patient is not clinically ill and does not meeting sepsis criteria. HIV makes suspicion higher but there is no leukopenia or lymphocytopenia on CBC and patient has history of good compliance with HIV medications on chart review - Hold metformin - Repeat lactic acid in morning - Encourage fluids - Follow blood cultures - Trend vitals; if clinical concern, will initiate empiric antibiotic coverage (4) ANTONIO (acute kidney injury) ICD Codes: N17.9 - Acute kidney failure, unspecified Plan: Mild renal injury on admission, likely pre-renal from N/V - See above plan (5) Schizoaffective disorder ICD Codes: F25.9 - Schizoaffective disorder, unspecified Status: Chronic Plan: Stable, continue home Remeron, Celexa, paliperidone (6) Coronary artery disease ICD Codes: I25.10 - Atherosclerotic heart disease of [place] coronary artery without angina pectoris Status: Acute Plan: Continue home ASA and statin (7) Diabetes mellitus type 2 in nonobese ICD Codes: E11.9 - Type 2 diabetes mellitus without complications Status: Chronic Plan: Glucose on admission in good control - Hold home metformin, sulfonylurea - Accucheck AC/HS - Levemir 10 units BID - Aspart 3 units TIDAC - Glucose goal 140-180; insulin regimen to be adjusted if needed (8) Osteoarthritis of knee Status: Chronic Plan: Continue home naproxen (9) Hypertension ICD Codes: I10 - Hypertension Status: Chronic Plan: BP close to goal on admission, had been a little low - Continue clonidine - Continue Coreg; hold for SBP < 120 (10) COPD (chronic obstructive pulmonary disease) ICD Codes: J44.9 - Chronic obstructive pulmonary disease, unspecified Status: Acute Plan: Stable, continue home Symbicort with albuterol if needed (11) HIV (human immunodeficiency virus infection) ICD Codes: Z21 - Asymptomatic human immunodeficiency virus [HIV] infection status Status: Acute Plan: Continue home Genvoya (12) FEN/PPX Plan: Fluids: PO only Elecs: Monitor and replete PRN Nutrition: Diet Heart Healthy DVT: Lovenox 30 units SQ daily CODE STATUS: Full code (Umair Davidson MD) Physician Certification 2 Midnight Certification Type: Admission for Inpatient Services Order for Inpatient Services The services are ordered in accordance with Medicare regulations or non- Medicare payer requirements, as applicable. In the case of services not specified as inpatient-only, they are appropriately provided as inpatient services in accordance with the 2-midnight benchmark. Estimated LOS (days): 2 days is the estimated time the patient will need to remain in the hospital, assuming treatment plan goals are met and no additional complications. Post-Hospital Plan: Home (Umair Davidson MD) Problem Qualifiers (1) Syncope: Qualified Codes: R55 - Syncope and collapse (2) Nausea & vomiting: Qualified Codes: R11.2 - Nausea with vomiting, unspecified (3) Schizoaffective disorder: Qualified Codes: F25.9 - Schizoaffective disorder, unspecified (4) Coronary artery disease: Qualified Codes: I25.10 - Atherosclerotic heart disease of [place] coronary artery without angina pectoris (5) Osteoarthritis of knee: Qualified Codes: M17.10 - Unilateral primary osteoarthritis, unspecified knee (6) Hypertension: Qualified Codes: I10 - Essential (primary) hypertension (7) COPD (chronic obstructive pulmonary disease): Qualified Codes: J44.9 - Chronic obstructive pulmonary disease, unspecified Umair Davidson MD May 08, 2017 20:28 Moreno Cannon MD May 09, 2017 16:33
[2017-05-08] MEDS ORDERED: GLUCAGON 1 MG/ML VIAL OTHER PRN (20:30)
[2017-05-08] MEDS ORDERED: ALBUTEROL SULFATE 90 MCG/ACT HFA 8 GM INHALER INH PRN (20:30)
[2017-05-08] MEDS ORDERED: DEXTROSE 50% IN WATER 50 ML VIAL(D50) IV PUSH PRN (20:30)
[2017-05-08] MEDS ORDERED: ELVI1TAB3 PO (20:50)
[2017-05-08 21:13] LABS: TROPONIN I LESS THAN 0.02 NG/ML (0.02-0.05)
[2017-05-08] MEDS ORDERED: PROMETHAZINE INJ 25 MG/ML VIAL IM PRN (21:30)
[2017-05-08] MEDS: DOCUSATE SODIUM 50 MG/SENNA 8.6 MG TAB PO SCH (22:16)
[2017-05-08] MEDS: MIRTAZAPINE 15 MG TAB PO SCH (22:16)
[2017-05-08] MEDS: CARVEDILOL 12.5 MG TAB PO SCH (22:17)
[2017-05-08] MEDS: PANTOPRAZOLE SOD 40 MG DELAYED RELEASE TAB PO SCH (22:17)
[2017-05-08] MEDS: ALPRAZolam 0.5 MG TAB PO PRN (22:17)
[2017-05-08] MEDS: SODIUM CHLORIDE 0.9% FLUSH 10 ML FLUSH IV FLUSH SCH (22:17)
[2017-05-08] MEDS: INSULIN DETEMIR 100 UNITS/ML VIAL SQ SCH (22:18)
[2017-05-08] MEDS: NAPROXEN 250 MG TAB PO SCH (22:20)
[2017-05-08] MEDS: BUDESONIDE-FORMOTEROL 160/4.5 MCG INHALER INH SCH (22:20)
[2017-05-08] MEDS: FLUTICASONE PROPIONATE 50 MCG/ACT 16 GM NASAL SPRAY NASAL SCH (22:20)
[2017-05-09] VITALS (10 sets, daily range): BP systolic 138–160; BP diastolic 67–94; PULSE 70–85; RESP 18–20; TEMP 97.8–98.8; O2SAT 90–98
[2017-05-09 02:36] LABS: HEMATOCRIT 34.5 % (35.0-46.0); HEMOGLOBIN 11.6 GM/DL (11.6-15.3); MEAN CELL VOLUME 93.2 FL (80.0-100.0); MEAN CORPUSCULAR HEMOGLOBIN 31.4 PG (27.0-34.0); MEAN CORPUSCULAR HGB CONC 33.7 % (32.0-36.0); MEAN PLATELET VOLUME 7.8 FL (7.0-11.0); PLATELET COUNT 256 TH/MM3 (150-450); WHITE BLOOD COUNT 8.6 TH/MM3 (4.0-11.0)
[2017-05-09 02:51] LABS: BICARBONATE 29.5 MEQ/L (21.0-32.0); BLOOD UREA NITROGEN 25 MG/DL (7-18); CALCIUM 8.8 MG/DL (8.5-10.1); CHLORIDE 100 MEQ/L (98-107); CREATININE 1.41 MG/DL (0.50-1.00); GLOMERULAR FILTRATION RATE 46 ML/MIN (>89); GLUCOSE,RANDOM 159 MG/DL (74-106); SODIUM (NA) 137 MEQ/L (136-145)
[2017-05-09 02:54] LABS: TROPONIN I LESS THAN 0.02 NG/ML (0.02-0.05)
[2017-05-09] MEDS ORDERED: POTASSIUM CHLORIDE 10 MEQ CONTROLLED RELEASE TAB PO ONE (07:45)
[2017-05-09] MEDS: INSULIN ASPART 1,000 UNITS/10 ML VIAL SQ SCH ×3 (08:00→17:00)
[2017-05-09] MEDS: ASPIRIN EC 81 MG TABEC PO SCH (08:55)
[2017-05-09] MEDS: NAPROXEN 250 MG TAB PO SCH ×2 (08:55→21:03)
[2017-05-09] MEDS: PALIPERIDONE ER 3 MG TAB PO SCH (08:55)
[2017-05-09] MEDS: PANTOPRAZOLE SOD 40 MG DELAYED RELEASE TAB PO SCH ×2 (08:57→21:03)
[2017-05-09] MEDS: cloNIDine HCL 0.2 MG TAB PO SCH (08:57)
[2017-05-09] MEDS: CITALOPRAM HYDROBROMIDE 20 MG TAB PO SCH (08:57)
[2017-05-09] MEDS: DOCUSATE SODIUM 50 MG/SENNA 8.6 MG TAB PO SCH ×2 (08:58→21:03)
[2017-05-09] MEDS: FUROSEMIDE 20 MG TAB PO SCH (08:58)
[2017-05-09] MEDS: CARVEDILOL 12.5 MG TAB PO SCH ×2 (08:58→21:03)
[2017-05-09] MEDS: INSULIN DETEMIR 100 UNITS/ML VIAL SQ SCH ×2 (08:59→21:04)
[2017-05-09] MEDS: FLUTICASONE PROPIONATE 50 MCG/ACT 16 GM NASAL SPRAY NASAL SCH ×2 (09:00→21:04)
[2017-05-09] MEDS: BUDESONIDE-FORMOTEROL 160/4.5 MCG INHALER INH SCH ×2 (09:00→21:04)
[2017-05-09] MEDS ORDERED: PT:GENVOYA PO SCH (09:00)
[2017-05-09] MEDS ORDERED: NON-FORMULARY DRUG (Elvitegravir-Cobicistat-Emtricitabin-Tenofvir (Genvoya) 1 TAB) PO SCH (09:00)
[2017-05-09] MEDS: SODIUM CHLORIDE 0.9% FLUSH 10 ML FLUSH IV FLUSH SCH ×2 (09:03→21:04)
--- NOTE | 2017-05-09 12:14 | HHI.FPPN ---
Subjective Remarks No acute events overnight. Patient lying in bed this AM. at bedside.Currently on 2L O2 NC. Afebrile. BP elevated at 158/85 this AM. Patient complains of midepigastric, aching, constant, abdominal pain. No episodes of vomiting since admission. Eating well. Patient denies CP, SOB, N/V, and diarrhea. (Ekta Biswas MD R1) Objective Vitals Vital Signs Date Time Temp Pulse Resp B/P (MAP) Pulse Ox O2 Delivery O2 Flow Rate FiO2 05/09/17 08:01 97.8 74 19 158/85 (109) 90 05/09/17 07:57 78 05/09/17 07:00 Room Air 05/09/17 04:00 98.0 73 18 149/71 (97) 98 138/67 (90) 143/70 (94) 05/09/17 04:00 Nasal Cannula 2.00 05/09/17 03:44 74 05/09/17 00:00 Nasal Cannula 2.00 05/08/17 23:46 80 05/08/17 22:07 Room Air 05/08/17 21:45 75 05/08/17 21:20 97.7 82 20 163/72 (102) 97 05/08/17 21:15 05/08/17 20:30 76 18 138/80 (99) 97 Nasal Cannula 2.00 05/08/17 17:12 71 16 134/64 (87) 95 Nasal Cannula 2.00 05/08/17 16:00 68 22 125/67 (86) 95 Nasal Cannula 2.00 05/08/17 15:00 66 16 112/60 (77) 98 Nasal Cannula 2.00 05/08/17 14:35 16 100 Room Air 05/08/17 14:31 68 16 99 Room Air 05/08/17 14:23 98.2 65 16 109/53 (71) 96 Room Air I/O 05/08/17 05/08/17 05/08/17 05/09/17 05/09/17 05/09/17 07:00 15:00 23:00 07:00 15:00 23:00 Intake Total 1350 ml Balance 1350 ml Intake IV Total 1350 ml (Ekta Biswas MD R1) Result Diagram: 1/29/18 0213 1/29/18 0213 Objective Remarks GENERAL: late middle-aged black woman sitting up in bed, comfortable, on 2L NC NAD SKIN: No rashes, ecchymoses or lesions. Cool and dry. NECK: Supple, no lymphadenopathy. No JVD. CARDIOVASCULAR: NRRR. Normal S1/S2. Soft, blowing, 2/6 DIONNE at LUSB. No carotid bruit. RESPIRATORY: CTAB, no wheezes or crackles GASTROINTESTINAL: Abdomen soft, non-distended, minimally tender to palpation diffusely. No hepato-splenomegaly or palpable masses. MUSCULOSKELETAL: Extremities without clubbing, cyanosis, or edema. NEUROLOGICAL: Awake and alert, oriented x3. (Ekta Biswas MD R1) A/P Assessment and Plan 61-year-old female with past medical history of HIV, hepatitis C, coronary artery disease, diabetes, hypertension, and COPD presenting with: Discharge Planning Echo pending PT assessment (Ekta Biswas MD R1) Attending Attestation Patient examined and case discussed with resident physicians I have read the above note and agree with the assessment/plan as discussed with me I was involved in all medical decision making for this patient Moreno Cannon M.D. (Moreno Cannon MD) Problem List: (1) Syncope ICD Codes: R55 - Syncope and collapse Status: Acute Plan: History consistent with syncopal episode, now clinically well-appearing. Likely etiology is hypotension/orthostasis due to vomiting. BP on admission borderline low for patient (110s, patient baseline in office well above 150) 2D Echo for EF assessment pending to r/o worsening valvular disease Work up: Orthostatic VS wnl Troponin x2 less than 0.02 TSH wnl EKG with left axis deviation, NSR with normal rate, no ST-T segment changes Echo in 2016 with moderate to severe MR, EF of 30-35% (2) Nausea & vomiting ICD Codes: R11.2 - Nausea with vomiting, unspecified Status: Resolved Plan: Now resolved. Unclear etiology, but history could be consistent with viral gastroenteritis. CT abdomen/pelvis reassuring - findings discussed with radiologist Dr. Carmen, no suspicion for acute mesenteric ischemia Lipase normal S/p 1 L bolus of NS - Replete potassium orally - Monitor BMP - Encourage PO fluids - Phenergan PRN (less QT prolongation than Zofran) (3) Lactic acidosis ICD Codes: E87.2 - Acidosis Status: Resolved Plan: Resolved: Lactic acid elevated on admission. Unclear etiology but patient has polypharmacy and dehydration; metformin use plus dehydration may combine to explain lactic acidosis. Initial Lactic acid 4.1, repeat at 2h was 3.5 (after 1 L IVF), 2.0 today (4) ANTONIO (acute kidney injury) ICD Codes: N17.9 - Acute kidney failure, unspecified Plan: Mild renal injury on admission, likely pre-renal from N/V. Improving today. - See above plan (5) Schizoaffective disorder ICD Codes: F25.9 - Schizoaffective disorder, unspecified Status: Chronic Plan: Stable, continue home Remeron, Celexa, paliperidone (6) Coronary artery disease ICD Codes: I25.10 - Atherosclerotic heart disease of [place] coronary artery without angina pectoris Status: Acute Plan: Continue home ASA and statin (7) Diabetes mellitus type 2 in nonobese ICD Codes: E11.9 - Type 2 diabetes mellitus without complications Status: Chronic Plan: Glucose on admission in good control - Hold home metformin, sulfonylurea - Accucheck AC/HS - Levemir 10 units BID - Aspart 3 units TIDAC - Glucose goal 140-180; insulin regimen to be adjusted if needed (8) Osteoarthritis of knee Status: Chronic Plan: Continue home naproxen (9) Hypertension ICD Codes: I10 - Hypertension Status: Chronic Plan: - Continue clonidine - Continue Coreg; hold for SBP < 120 (10) COPD (chronic obstructive pulmonary disease) ICD Codes: J44.9 - Chronic obstructive pulmonary disease, unspecified Status: Acute Plan: Stable, continue home Symbicort with albuterol if needed (11) HIV (human immunodeficiency virus infection) ICD Codes: Z21 - Asymptomatic human immunodeficiency virus [HIV] infection status Status: Acute Plan: Continue home Genvoya (12) FEN/PPX Plan: Fluids: PO only Elecs: Monitor and replete PRN Nutrition: Diet Heart Healthy DVT: Lovenox 30 units SQ daily CODE STATUS: Full code (Ekta Biswas MD R1) Problem Qualifiers (1) Syncope: Qualified Codes: R55 - Syncope and collapse (2) Nausea & vomiting: Qualified Codes: R11.2 - Nausea with vomiting, unspecified (3) Schizoaffective disorder: Qualified Codes: F25.9 - Schizoaffective disorder, unspecified (4) Coronary artery disease: Qualified Codes: I25.10 - Atherosclerotic heart disease of [place] coronary artery without angina pectoris (5) Osteoarthritis of knee: Qualified Codes: M17.10 - Unilateral primary osteoarthritis, unspecified knee (6) Hypertension: Qualified Codes: I10 - Essential (primary) hypertension (7) COPD (chronic obstructive pulmonary disease): Qualified Codes: J44.9 - Chronic obstructive pulmonary disease, unspecified Ekta Biswas MD R1 May 09, 2017 12:14 Moreno Cannon MD May 09, 2017 16:33
--- NOTE | 2017-05-09 16:32 | HHI.HP ---
[facility] Service Family Medicine Primary Care Physician Moreno Cannon MD Admission Diagnosis lactic acidosis, abdominal pain, syncope Diagnoses: (1) Syncope (2) Nausea & vomiting (3) Lactic acidosis (4) ANTONIO (acute kidney injury) (5) Schizoaffective disorder (6) Coronary artery disease (7) Diabetes mellitus type 2 in nonobese (8) Osteoarthritis of knee (9) Hypertension (10) COPD (chronic obstructive pulmonary disease) (11) HIV (human immunodeficiency virus infection) (12) FEN/PPX International Travel<30 Days: No Contact w/Intl Traveler<30days: No Known Affected Area: No History of Present Illness Overnight there were no acute events and patient states that she tolerated breakfast and lunch without difficulty and issues. She was seen at approximately 3:00 in afternoon today and has been walking around her room without any lightheadedness or dizziness. She denies any chest pain or shortness of breath. She denies any nausea or vomiting. She denies any diarrhea. She denies any lightheadedness or dizziness. She denies any abdominal pain at this time. She actually feels hungry again at this moment would like to order a meal. In summary, this is a 61-year-old female with past medical history of HIV, hepatitis C, coronary artery disease, diabetes, hypertension, and COPD presenting with a syncopal episode occurring this morning at [employer] in the context of 3 days of nausea and vomiting with meals. In [employer] this morning, she felt a sudden heat and then felt very fatigued and lightheaded. 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 She did not hit her head. She did not have any prodromal symptoms including palpitations, chest pain, shortness of breath. For the last few days she has been having nausea and vomiting after the majority of her meals. Past Family Social History Past Medical History HIV (sees ID: Dr. Waddell) ) Hep C depression (sees psychiatrist: Titi Culp ([phone]) Schizoaffective disorder Diabetes HSV Anemia/neutropenia GERD Hypertension WI x1 CHF COPD - Hypoxia requiring oxygen Past Surgical History Hysterectomy Colonoscopy/EGD/Pap smear: 2012 all negative Allergies: Coded Allergies: No Known Allergies (Verified Adverse Reaction, Unknown, 05/08/17) Family History Negative for stroke Social History Lives with at home. Not working. Disabled. Physical Exam Vital Signs Vital Signs Date Time Temp Pulse Resp B/P (MAP) Pulse Ox O2 Delivery O2 Flow Rate FiO2 05/09/17 12:01 98.3 70 19 142/79 (100) 97 05/09/17 08:01 97.8 74 19 158/85 (109) 90 05/09/17 07:57 78 05/09/17 07:00 Room Air 05/09/17 04:00 98.0 73 18 149/71 (97) 98 138/67 (90) 143/70 (94) 05/09/17 04:00 Nasal Cannula 2.00 05/09/17 03:44 74 05/09/17 00:00 Nasal Cannula 2.00 05/08/17 23:46 80 05/08/17 22:07 Room Air 05/08/17 21:45 75 05/08/17 21:20 97.7 82 20 163/72 (102) 97 05/08/17 21:15 05/08/17 20:30 76 18 138/80 (99) 97 Nasal Cannula 2.00 05/08/17 17:12 71 16 134/64 (87) 95 Nasal Cannula 2.00 Physical Exam GENERAL: Elderly appearing female, sitting up in bed in no obvious distress. She does not have oxygen on at this time SKIN: No rashes, ecchymoses or lesions. Cool and dry. NECK: Supple, no lymphadenopathy. No JVD. CARDIOVASCULAR: NRRR. Normal S1/S2. 2/6 systolic murmur RESPIRATORY: CTAB, no wheezes or crackles GASTROINTESTINAL: Abdomen soft, non-distended, nontender to palpation No hepato- splenomegaly or palpable masses. MUSCULOSKELETAL: Extremities without clubbing, cyanosis, or edema. NEUROLOGICAL: Awake and alert, oriented x3 Laboratory Laboratory Tests Test 05/08/17 16:45 05/08/17 17:05 05/08/17 20:08 05/09/17 02:13 Urine Color YELLOW Urine Turbidity HAZY Urine pH 5.5 Urine Specific [place] 1.021 Urine Protein 30 Urine Glucose (UA) TRACE Urine Ketones NEG Urine Occult Blood NEG Urine Nitrite NEG Urine Bilirubin NEG Urine Urobilinogen 2.0 Urine Leukocyte Esterase NEG Urine RBC 1 Urine WBC 3 Urine Squamous Epithelial Cells 7 Urine Bacteria OCC Urine Hyaline Casts 37 Urine Mucus FEW Microscopic Urinalysis Comment CULT NOT INDICATED Lactic Acid Level 3.5 Total Creatine Kinase 112 84 Creatine Kinase MB 1.0 Troponin I LESS THAN 0.02 LESS THAN 0.02 Lipase 159 Thyroid Stimulating Hormone 3rd Gen 0.850 White Blood Count 8.6 Red Blood Count 3.70 Hemoglobin 11.6 Hematocrit 34.5 Mean Corpuscular Volume 93.2 Mean Corpuscular Hemoglobin 31.4 Mean Corpuscular Hemoglobin Concent 33.7 Red Cell Distribution Width 15.0 Platelet Count 256 Mean Platelet Volume 7.8 Blood Urea Nitrogen 25 Creatinine 1.41 Random Glucose 159 Calcium Level 8.8 Sodium Level 137 Potassium Level 3.3 Chloride Level 100 Carbon Dioxide Level 29.5 Anion Gap 8 Estimat Glomerular Filtration Rate 46 Test 05/09/17 09:35 Lactic Acid Level 2.0 Magnesium Level 1.9 Date/Time Source Procedure Growth Status 05/08/17 17:05 Blood Peripheral Aerobic Blood Culture - Preliminary NO GROWTH IN 1 DAY Resulted 05/08/17 17:05 Blood Peripheral Anaerobic Blood Culture - Preliminary NO GROWTH IN 1 DAY Resulted Result Diagram: 05/09/17 0213 05/09/17 0213 Imaging Last Impressions Chest X-Ray 05/08/17 1432 Signed Impressions: Service Date/Time: Monday, May 08, 2017 14:45 - CONCLUSION: No acute cardiopulmonary disease identified. Messi Mensah MD Abdomen/Pelvis CT 05/08/17 0000 Signed Impressions: Service Date/Time: Monday, May 08, 2017 18:24 - CONCLUSION: Additional contrast was not injected secondary to poor GFR. The multiplanar reconstructions indicate atherosclerosis and tortuosity of the abdominal aorta and branch vessels but without evidence of inflammatory changes or acute thrombosis. Bilateral renal parenchyma enhances normally. There are no secondary changes of the bowel to suggest ischemia. There is shotty retroperitoneal adenopathy. Nothing pathologic appearing by size criteria. Jonathan Carmen MD Caprini VTE Risk Assessment Caprini VTE Risk Assessment: Mod/High Risk (score >= 2) Caprini Risk Assessment Model Point Value = 1 Point Value = 2 Point Value = 3 Point Value = 5 Age 41-60 Minor surgery BMI > 25 kg/m2 Swollen legs Varicose veins or History of unexplained or recurrent spontaneous Oral contraceptives or hormone replacement Sepsis (< 1 month) Serious lung disease, including pneumonia (< 1 month) Abnormal pulmonary function Acute myocardial infarction Congestive heart failure (< 1 month) History of inflammatory bowel disease Medical patient at bed rest Age 61-74 Arthroscopic surgery Major open surgery (> 45 min) Laparoscopic surgery (> 45 min) Malignancy Confined to bed (> 72 hours) Immobilizing plaster cast Central venous access Age >= 75 History of VTE Family history of VTE Factor V Leiden Prothrombin [id number] Lupus anticoagulant Anticardiolipin antibodies Elevated serum homocysteine Heparin-induced thrombocytopenia Other congenital or acquired thrombophilia Stroke (< 1 month) Elective arthroplasty Hip, pelvis, or leg fracture Acute spinal cord injury (< 1 month) Prophylaxis Regimen Total Risk Factor Score Risk Level Prophylaxis Regimen 0-1 Low Early ambulation 2 Moderate Order ONE of the following: *Sequential Compression Device (SCD) *Heparin 5000 units SQ BID 3-4 Higher Order ONE of the following medications: *Heparin 5000 units SQ TID *Enoxaparin/Lovenox 40 mg SQ daily (WT < 150 kg, CrCl > 30 mL/min) *Enoxaparin/Lovenox 30 mg SQ daily (WT < 150 kg, CrCl > 10-29 mL/min) *Enoxaparin/Lovenox 30 mg SQ BID (WT < 150 kg, CrCl > 30 mL/min) AND/OR *Sequential Compression Device (SCD) 5 or more Highest Order ONE of the following medications: *Heparin 5000 units SQ TID (Preferred with Epidurals) *Enoxaparin/Lovenox 40 mg SQ daily (WT < 150 kg, CrCl > 30 mL/min) *Enoxaparin/Lovenox 30 mg SQ daily (WT < 150 kg, CrCl > 10-29 mL/min) *Enoxaparin/Lovenox 30 mg SQ BID (WT < 150 kg, CrCl > 30 mL/min) AND *Sequential Compression Device (SCD) Assessment and Plan Assessment and Plan 61-year-old female with past medical history of HIV, hepatitis C, coronary artery disease, diabetes, hypertension, and COPD presenting with: Problem List: (1) Syncope ICD Codes: R55 - Syncope and collapse Status: Acute Plan: History consistent with syncopal episode, now clinically well-appearing. Likely etiology is hypotension/orthostasis due to vomiting. BP on admission borderline low for patient (110s, patient baseline in office well above 150) 2D Echo for EF assessment pending to r/o worsening valvular disease Physical therapy ordered for evaluation of gait and strength Work up: Orthostatic VS wnl Troponin x2 less than 0.02 TSH wnl EKG with left axis deviation, NSR with normal rate, no ST-T segment changes Echo in 2016 with moderate to severe MR, EF of 30-35% (2) Nausea & vomiting ICD Codes: R11.2 - Nausea with vomiting, unspecified Status: Resolved Plan: Now resolved. Unclear etiology, but history could be consistent with viral gastroenteritis. CT abdomen/pelvis reassuring - findings discussed with radiologist Dr. Carmen, no suspicion for acute mesenteric ischemia Lipase normal S/p 1 L bolus of NS in the emergency department Now tolerating regular food - Monitor BMP - Encourage PO fluids - Phenergan PRN (less QT prolongation than Zofran) (3) Lactic acidosis ICD Codes: E87.2 - Acidosis Status: Resolved Plan: Resolved: Lactic acid elevated on admission. Unclear etiology but patient has polypharmacy and dehydration; metformin use plus dehydration may combine to explain lactic acidosis. Initial Lactic acid 4.1, repeat at 2h was 3.5 (after 1 L IVF), 2.0 today (4) ANTONIO (acute kidney injury) ICD Codes: N17.9 - Acute kidney failure, unspecified Plan: Mild renal injury on admission, likely pre-renal from N/V. Improving today. - See above plan (5) Schizoaffective disorder ICD Codes: F25.9 - Schizoaffective disorder, unspecified Status: Chronic Plan: Stable, continue home Remeron, Celexa, paliperidone (6) Coronary artery disease ICD Codes: I25.10 - Atherosclerotic heart disease of [place] coronary artery without angina pectoris Status: Acute Plan: Continue home ASA and statin (7) Diabetes mellitus type 2 in nonobese ICD Codes: E11.9 - Type 2 diabetes mellitus without complications Status: Chronic Plan: Glucose on admission in good control - Hold home metformin, sulfonylurea - Accucheck AC/HS - Levemir 10 units BID - Aspart 3 units TIDAC - Glucose goal 140-180; insulin regimen to be adjusted if needed (8) Osteoarthritis of knee Status: Chronic Plan: Continue home naproxen (9) Hypertension ICD Codes: I10 - Hypertension Status: Chronic Plan: - Continue clonidine - Continue Coreg; hold for SBP < 120 (10) COPD (chronic obstructive pulmonary disease) ICD Codes: J44.9 - Chronic obstructive pulmonary disease, unspecified Status: Acute Plan: Stable, continue home Symbicort with albuterol if needed (11) HIV (human immunodeficiency virus infection) ICD Codes: Z21 - Asymptomatic human immunodeficiency virus [HIV] infection status Status: Acute Plan: Continue home Genvoya (12) FEN/PPX Plan: Fluids: PO only Elecs: Monitor and replete PRN Nutrition: Diet Heart Healthy DVT: Lovenox 30 units SQ daily CODE STATUS: Full code Physician Certification 2 Midnight Certification Type: Admission for Inpatient Services Order for Inpatient Services The services are ordered in accordance with Medicare regulations or non- Medicare payer requirements, as applicable. In the case of services not specified as inpatient-only, they are appropriately provided as inpatient services in accordance with the 2-midnight benchmark. Estimated LOS (days): 2 2 days is the estimated time the patient will need to remain in the hospital, assuming treatment plan goals are met and no additional complications. Post-Hospital Plan: Home Problem Qualifiers (1) Syncope: Qualified Codes: R55 - Syncope and collapse (2) Nausea & vomiting: Qualified Codes: R11.2 - Nausea with vomiting, unspecified (3) Schizoaffective disorder: Qualified Codes: F25.9 - Schizoaffective disorder, unspecified (4) Coronary artery disease: Qualified Codes: I25.10 - Atherosclerotic heart disease of [place] coronary artery without angina pectoris (5) Osteoarthritis of knee: Qualified Codes: M17.10 - Unilateral primary osteoarthritis, unspecified knee (6) Hypertension: Qualified Codes: I10 - Essential (primary) hypertension (7) COPD (chronic obstructive pulmonary disease): Qualified Codes: J44.9 - Chronic obstructive pulmonary disease, unspecified Moreno Cannon MD May 09, 2017 16:32
--- NOTE | 2017-05-09 17:36 | EKG ---
Date Performed: 05/08/2017 Time Performed: 14:18:07 PTAGE: 61 years EKG: Sinus rhythm MARKED LEFT AXIS DEVIATION NONSPECIFIC T-WAVE ABNORMALITY Left anterior fasicular block. ABNORMAL EC G PREVIOUS TRACING : 02/25/2016 06.19 DOCTOR: Rojas Gasca Interpretating Date/Time 05/09/2017 17:35:06
[2017-05-09] MEDS: ENOXAPARIN SODIUM 30 MG/0.3 ML SYRINGE SQ SCH (21:02)
[2017-05-09] MEDS: MIRTAZAPINE 15 MG TAB PO SCH (21:03)
[2017-05-09] MEDS: ALPRAZolam 0.5 MG TAB PO PRN (21:03)
[2017-05-10] VITALS (7 sets, daily range): BP systolic 137–144; BP diastolic 68–82; PULSE 62–69; RESP 20–21; TEMP 97.9–98.8; O2SAT 94–96
[2017-05-10 02:20] LABS: BICARBONATE 28.3 MEQ/L (21.0-32.0); CALCIUM 8.8 MG/DL (8.5-10.1); CREATININE 1.16 MG/DL (0.50-1.00)
[2017-05-10] MEDS: SODIUM CHLORIDE 0.9% FLUSH 10 ML FLUSH IV FLUSH SCH (07:22)
[2017-05-10] MEDS: CITALOPRAM HYDROBROMIDE 20 MG TAB PO SCH (08:34)
[2017-05-10] MEDS: FUROSEMIDE 20 MG TAB PO SCH (08:34)
[2017-05-10] MEDS: DOCUSATE SODIUM 50 MG/SENNA 8.6 MG TAB PO SCH (08:34)
[2017-05-10] MEDS: NAPROXEN 250 MG TAB PO SCH (08:34)
[2017-05-10] MEDS: CARVEDILOL 12.5 MG TAB PO SCH (08:34)
[2017-05-10] MEDS: cloNIDine HCL 0.2 MG TAB PO SCH (08:34)
[2017-05-10] MEDS: PANTOPRAZOLE SOD 40 MG DELAYED RELEASE TAB PO SCH (08:34)
[2017-05-10] MEDS: PALIPERIDONE ER 3 MG TAB PO SCH (08:34)
[2017-05-10] MEDS: ASPIRIN EC 81 MG TABEC PO SCH (08:34)
[2017-05-10] MEDS: INSULIN ASPART 1,000 UNITS/10 ML VIAL SQ SCH ×2 (08:35→12:35)
[2017-05-10] MEDS: INSULIN DETEMIR 100 UNITS/ML VIAL SQ SCH (08:35)
[2017-05-10] MEDS: FLUTICASONE PROPIONATE 50 MCG/ACT 16 GM NASAL SPRAY NASAL SCH (08:37)
[2017-05-10] MEDS: BUDESONIDE-FORMOTEROL 160/4.5 MCG INHALER INH SCH (08:38)
--- NOTE | 2017-05-10 10:28 | HHI.FPPN ---
Subjective Remarks No acute events overnight. Pt doing well this AM, eager to go home. No complaints this AM. She denies CP, SOB, abdominal pain, and N/V. (Ekta Biswas MD R1) Objective Vitals Vital Signs Date Time Temp Pulse Resp B/P (MAP) Pulse Ox O2 Delivery O2 Flow Rate FiO2 05/10/17 08:01 98.0 66 20 142/70 (94) 94 05/10/17 04:07 66 05/10/17 04:00 97.9 62 21 138/82 (100) 94 05/10/17 00:04 68 05/10/17 00:00 98.8 69 21 144/68 (93) 96 05/10/17 00:00 Room Air 05/09/17 20:29 85 05/09/17 20:00 Room Air 05/09/17 20:00 98.8 76 20 160/94 (116) 93 05/09/17 16:01 98.0 70 19 144/80 (101) 97 05/09/17 16:00 74 05/09/17 12:09 70 05/09/17 12:01 98.3 70 19 142/79 (100) 97 I/O 05/09/17 05/09/17 05/09/17 05/10/17 05/10/17 05/10/17 07:00 15:00 23:00 07:00 15:00 23:00 Intake Total 420 ml 280 ml Output Total 1000 ml Balance -580 ml 280 ml Intake Oral 420 ml 280 ml Output Urine Total 1000 ml # Voids 3 # Bowel Movements 1 1 (Ekta Biswas MD R1) Result Diagram: 05/09/17 0213 05/10/17 0003 Objective Remarks GENERAL: late middle-aged black woman sitting up in bed, comfortable, on 2L NC NAD SKIN: No rashes, ecchymoses or lesions. Cool and dry. NECK: Supple, no lymphadenopathy. No JVD. CARDIOVASCULAR: NRRR. Normal S1/S2. Soft, blowing, 2/6 DIONNE at LUSB. No carotid bruit. RESPIRATORY: CTAB, no wheezes or crackles GASTROINTESTINAL: Abdomen soft, non-distended, nontender No hepato-splenomegaly or palpable masses. MUSCULOSKELETAL: Extremities without clubbing, cyanosis, or edema. NEUROLOGICAL: Awake and alert, oriented x3. (Ekta Biswas MD R1) A/P Assessment and Plan 61-year-old female with past medical history of HIV, hepatitis C, coronary artery disease, diabetes, hypertension, and COPD presenting with: Discharge Planning Echo pending Home with no PT (Ekta Biswas MD R1) Attending Attestation Patient examined and case discussed with resident physicians. I have read the above note and agree with the assessment/plan as discussed with me. I was involved in all medical decision making for this patient. Moreno Cannon MD (Moreno Cannon MD) Problem List: (1) Syncope ICD Codes: R55 - Syncope and collapse Status: Acute Plan: History consistent with syncopal episode, now clinically well-appearing. Likely etiology is hypotension/orthostasis due to vomiting. BP on admission borderline low for patient (110s, patient baseline in office well above 150) 2D Echo for EF assessment pending to r/o worsening valvular disease Physical therapy ordered for evaluation of gait and strength Work up: Orthostatic VS wnl Troponin x2 less than 0.02 TSH wnl EKG with left axis deviation, NSR with normal rate, no ST-T segment changes Echo in 2016 with moderate to severe MR, EF of 30-35% (2) Nausea & vomiting ICD Codes: R11.2 - Nausea with vomiting, unspecified Status: Resolved Plan: Now resolved. Unclear etiology, but history could be consistent with viral gastroenteritis. CT abdomen/pelvis reassuring - findings discussed with radiologist Dr. Carmen, no suspicion for acute mesenteric ischemia Lipase normal S/p 1 L bolus of NS in the emergency department Now tolerating regular food - Monitor BMP - Encourage PO fluids - Phenergan PRN (less QT prolongation than Zofran) (3) Lactic acidosis ICD Codes: E87.2 - Acidosis Status: Resolved Plan: Resolved: Lactic acid elevated on admission. Unclear etiology but patient has polypharmacy and dehydration; metformin use plus dehydration may combine to explain lactic acidosis. Initial Lactic acid 4.1, repeat at 2h was 3.5 (after 1 L IVF), 2.0 today (4) ANTONIO (acute kidney injury) ICD Codes: N17.9 - Acute kidney failure, unspecified Plan: Mild renal injury on admission, likely pre-renal from N/V. Improving today. - See above plan (5) Schizoaffective disorder ICD Codes: F25.9 - Schizoaffective disorder, unspecified Status: Chronic Plan: Stable, continue home Remeron, Celexa, paliperidone (6) Coronary artery disease ICD Codes: I25.10 - Atherosclerotic heart disease of [place] coronary artery without angina pectoris Status: Acute Plan: Continue home ASA and statin (7) Diabetes mellitus type 2 in nonobese ICD Codes: E11.9 - Type 2 diabetes mellitus without complications Status: Chronic Plan: Glucose on admission in good control - Hold home metformin, sulfonylurea - Accucheck AC/HS - Levemir 10 units BID - Aspart 3 units TIDAC - Glucose goal 140-180; insulin regimen to be adjusted if needed (8) Osteoarthritis of knee Status: Chronic Plan: Continue home naproxen (9) Hypertension ICD Codes: I10 - Hypertension Status: Chronic Plan: - Continue clonidine - Continue Coreg; hold for SBP < 120 (10) COPD (chronic obstructive pulmonary disease) ICD Codes: J44.9 - Chronic obstructive pulmonary disease, unspecified Status: Acute Plan: Stable, continue home Symbicort with albuterol if needed (11) HIV (human immunodeficiency virus infection) ICD Codes: Z21 - Asymptomatic human immunodeficiency virus [HIV] infection status Status: Acute Plan: Continue home Genvoya (12) FEN/PPX Plan: Fluids: PO only Elecs: Monitor and replete PRN Nutrition: Diet Heart Healthy DVT: Lovenox 30 units SQ daily CODE STATUS: Full code (Ekta Biswas MD R1) Problem Qualifiers (1) Syncope: Qualified Codes: R55 - Syncope and collapse (2) Nausea & vomiting: Qualified Codes: R11.2 - Nausea with vomiting, unspecified (3) Schizoaffective disorder: Qualified Codes: F25.9 - Schizoaffective disorder, unspecified (4) Coronary artery disease: Qualified Codes: I25.10 - Atherosclerotic heart disease of [place] coronary artery without angina pectoris (5) Osteoarthritis of knee: Qualified Codes: M17.10 - Unilateral primary osteoarthritis, unspecified knee (6) Hypertension: Qualified Codes: I10 - Essential (primary) hypertension (7) COPD (chronic obstructive pulmonary disease): Qualified Codes: J44.9 - Chronic obstructive pulmonary disease, unspecified Ekta Biswas MD R1 May 10, 2017 10:28 Moreno Cannon MD May 10, 2017 16:22
--- NOTE | 2017-05-10 10:49 | HHI.DCPOC ---
Discharge Care Plan Diagnosis: (1) Syncope (2) Schizoaffective disorder (3) Nausea & vomiting (4) Lactic acidosis Goals to Promote Your Health * To prevent worsening of your condition and complications * To maintain your health at the optimal level Directions to Meet Your Goals Take your medications as prescribed Follow your dietary instruction Follow activity as directed Keep your appointments as scheduled Take your immunizations and boosters as scheduled If your symptoms worsen call your PCP, if no PCP go to Urgent Care Center or Emergency Room Smoking is Dangerous to Your Health. Avoid second hand smoke Call the 24-hour hour crisis hotline for domestic abuse at Ekta Biswas MD R1 May 10, 2017 10:49
--- NOTE | 2017-05-10 11:17 | HHI.DS ---
Discharge Summary Admission Date May 08, 2017 at 19:06 Discharge Date: May 10, 2017 Admitting Diagnosis lactic acidosis, abdominal pain, syncope (1) Syncope Plan: History consistent with syncopal episode, now clinically well-appearing. Likely etiology is hypotension/orthostasis due to vomiting. BP on admission borderline low for patient (110s, patient baseline in office well above 150) 2D Echo for EF assessment pending to r/o worsening valvular disease Physical therapy ordered for evaluation of gait and strength Work up: Orthostatic VS wnl Troponin x2 less than 0.02 TSH wnl EKG with left axis deviation, NSR with normal rate, no ST-T segment changes Echo in 2016 with moderate to severe MR, EF of 30-35% ICD Codes: R55 - Syncope and collapse Status: Acute (2) Nausea & vomiting Plan: Now resolved. Unclear etiology, but history could be consistent with viral gastroenteritis. CT abdomen/pelvis reassuring - findings discussed with radiologist Dr. Carmen, no suspicion for acute mesenteric ischemia Lipase normal S/p 1 L bolus of NS in the emergency department Now tolerating regular food - Monitor BMP - Encourage PO fluids - Phenergan PRN (less QT prolongation than Zofran) ICD Codes: R11.2 - Nausea with vomiting, unspecified Status: Resolved (3) Lactic acidosis Plan: Resolved: Lactic acid elevated on admission. Unclear etiology but patient has polypharmacy and dehydration; metformin use plus dehydration may combine to explain lactic acidosis. Initial Lactic acid 4.1, repeat at 2h was 3.5 (after 1 L IVF), 2.0 today ICD Codes: E87.2 - Acidosis Status: Resolved (4) ANTONIO (acute kidney injury) Plan: Mild renal injury on admission, likely pre-renal from N/V. Improving today. - See above plan ICD Codes: N17.9 - Acute kidney failure, unspecified (5) Schizoaffective disorder Plan: Stable, continue home Remeron, Celexa, paliperidone ICD Codes: F25.9 - Schizoaffective disorder, unspecified Status: Chronic (6) Coronary artery disease Plan: Continue home ASA and statin ICD Codes: I25.10 - Atherosclerotic heart disease of [place] coronary artery without angina pectoris Status: Acute (7) Diabetes mellitus type 2 in nonobese Plan: Glucose on admission in good control - Hold home metformin, sulfonylurea - Accucheck AC/HS - Levemir 10 units BID - Aspart 3 units TIDAC - Glucose goal 140-180; insulin regimen to be adjusted if needed ICD Codes: E11.9 - Type 2 diabetes mellitus without complications Status: Chronic (8) Osteoarthritis of knee Plan: Continue home naproxen Status: Chronic (9) Hypertension Plan: - Continue clonidine - Continue Coreg; hold for SBP < 120 ICD Codes: I10 - Hypertension Status: Chronic (10) COPD (chronic obstructive pulmonary disease) Plan: Stable, continue home Symbicort with albuterol if needed ICD Codes: J44.9 - Chronic obstructive pulmonary disease, unspecified Status: Acute (11) HIV (human immunodeficiency virus infection) Plan: Continue home Genvoya ICD Codes: Z21 - Asymptomatic human immunodeficiency virus [HIV] infection status Status: Acute (12) FEN/PPX Plan: Fluids: PO only Elecs: Monitor and replete PRN Nutrition: Diet Heart Healthy DVT: Lovenox 30 units SQ daily CODE STATUS: Full code Brief History Overnight there were no acute events and patient states that she tolerated breakfast and lunch without difficulty and issues. She was seen at approximately 3:00 in afternoon today and has been walking around her room without any lightheadedness or dizziness. She denies any chest pain or shortness of breath. She denies any nausea or vomiting. She denies any diarrhea. She denies any lightheadedness or dizziness. She denies any abdominal pain at this time. She actually feels hungry again at this moment would like to order a meal. In summary, this is a 61-year-old female with past medical history of HIV, hepatitis C, coronary artery disease, diabetes, hypertension, and COPD presenting with a syncopal episode occurring this morning at [employer] in the context of 3 days of nausea and vomiting with meals. In [employer] this morning, she felt a sudden heat and then felt very fatigued and lightheaded. 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 She did not hit her head. She did not have any prodromal symptoms including palpitations, chest pain, shortness of breath. For the last few days she has been having nausea and vomiting after the majority of her meals. CBC/BMP: 05/09/17 0213 05/10/17 0003 Significant Findings Laboratory Tests Test 05/08/17 14:40 05/08/17 16:45 05/08/17 17:05 05/08/17 20:08 Monocytes (%) (Auto) 8.5 % (0.0-8.0) Activated Partial Thromboplast Time 23.7 SEC (24.3-30.1) Blood Urea Nitrogen 26 MG/DL (7-18) Creatinine 1.49 MG/DL (0.50-1.00) Random Glucose 126 MG/DL (74-106) Total Protein 8.4 GM/DL (6.4-8.2) Sodium Level 133 MEQ/L (136-145) Potassium Level 3.4 MEQ/L (3.5-5.1) Chloride Level 93 MEQ/L (98-107) Estimat Glomerular Filtration Rate 43 ML/MIN (>89) Lactic Acid Level 4.1 mmol/L (0.4-2.0) 3.5 mmol/L (0.4-2.0) Troponin I LESS THAN 0.02 NG/ML LESS THAN 0.02 NG/ML Urine Turbidity HAZY (CLEAR) Urine Protein 30 mg/dL (NEG-TRACE) Urine Bacteria OCC /hpf (NONE) Urine Mucus FEW /lpf (OCC) Test 05/09/17 02:13 05/09/17 09:35 05/10/17 00:03 Red Blood Count 3.70 MIL/MM3 (4.00-5.30) Hematocrit 34.5 % (35.0-46.0) Blood Urea Nitrogen 25 MG/DL (7-18) 22 MG/DL (7-18) Creatinine 1.41 MG/DL (0.50-1.00) 1.16 MG/DL (0.50-1.00) Random Glucose 159 MG/DL (74-106) 168 MG/DL (74-106) Potassium Level 3.3 MEQ/L (3.5-5.1) Estimat Glomerular Filtration Rate 46 ML/MIN (>89) 58 ML/MIN (>89) Troponin I LESS THAN 0.02 NG/ML Imaging Last Impressions Chest X-Ray 05/08/17 1432 Signed Impressions: Service Date/Time: Monday, May 08, 2017 14:45 - CONCLUSION: No acute cardiopulmonary disease identified. Messi Mensah MD Abdomen/Pelvis CT 05/08/17 0000 Signed Impressions: Service Date/Time: Monday, May 08, 2017 18:24 - CONCLUSION: Additional contrast was not injected secondary to poor GFR. The multiplanar reconstructions indicate atherosclerosis and tortuosity of the abdominal aorta and branch vessels but without evidence of inflammatory changes or acute thrombosis. Bilateral renal parenchyma enhances normally. There are no secondary changes of the bowel to suggest ischemia. There is shotty retroperitoneal adenopathy. Nothing pathologic appearing by size criteria. Jonathan Carmen MD PE at Discharge GENERAL: late middle-aged black woman sitting up in bed, comfortable, on 2L NC NAD SKIN: No rashes, ecchymoses or lesions. Cool and dry. NECK: Supple, no lymphadenopathy. No JVD. CARDIOVASCULAR: NRRR. Normal S1/S2. Soft, blowing, 2/6 DIONNE at LUSB. No carotid bruit. RESPIRATORY: CTAB, no wheezes or crackles GASTROINTESTINAL: Abdomen soft, non-distended, minimally tender to palpation diffusely. No hepato-splenomegaly or palpable masses. MUSCULOSKELETAL: Extremities without clubbing, cyanosis, or edema. NEUROLOGICAL: Awake and alert, oriented x3. Hospital Course 61 yr old F w/ PMHx of HIV, hep C, CAD, DM, HTN, and COPD admitted on 05/09 for syncopal episode, N/V, and lactic acidosis. Syncope most likely due to hypotension/orthostasis due to vomiting. Cardiac workup was negative. Echo on demonstrated EF of 70-75%. Nausea and vomiting resolved during hospital stay , etiology most likely due to viral gastroenteritis based on history. .CT of abdomen/pelvis was reassuring, no suspicion for acute mesenteric ischemia. Pt continued to tolerate regular food. In addition, lactic acidosis was most likely complicated by metformin plus dehydration. Metformin held and lactic acidosis resolved during hospital stay. Patient determined stable and discharged on 05/10. Pt Condition on Discharge: Stable Discharge Disposition: Discharge Home Discharge Instructions DIET: Follow Instructions for: Heart Healthy Diet Activities you can perform: Weight Bearing as Prisca Follow up Referrals: PCP Follow-up - 1 Week PCP Follow-up @ [facility] Continued Medications: Albuterol 8.5 GM Inh (Proair Hfa 8.5 GM Inh) 90 Mcg/Act Aer 2 PUFF INH Q4-6H PRN for SHORTNESS OF BREATH, #1 INHALER 3 Refills 108 mcg/actuation Alprazolam (Xanax) 0.5 Mg Tab 0.5 MG PO Q6H PRN for ANXIETY, #20 TAB [address] (Aspirin EC) 81 Mg Tabdr 81 MG PO DAILY, #30 TAB 0 Refills Benzonatate (Benzonatate) 100 Mg Cap 100 MG PO TID PRN for COUGH, #60 CAP 0 Refills Budesonide-Formoterol Inh (Symbicort Inh) 160-4.5 Mcg/Act Aero 2 PUFF INH Q12HR, #1 INHALER 2 Refills Carvedilol (Carvedilol) 25 Mg Tab 25 MG PO BID, #180 TAB 0 Refills Citalopram (Celexa) 20 Mg Tab 20 MG PO DAILY for Control Depression, #90 TAB 0 Refills Clonidine (Clonidine) 0.2 Mg Tab 0.2 MG PO DAILY for Blood Pressure Management, #90 TAB 1 Refill Docusate Sodium (Docusate Sodium) 100 Mg Cap 100 MG PO BID for Prevent Constipation, #60 CAP 0 Refills Yzwdhohdqcnp-Ubmhizlhte-Gmmkzvgyaqyu-Tenofvir (Genvoya) [phone] Mg Tab 1 TAB PO DAILY for Infection Fluticasone Nasal [place] (Flonase Nasal [place]) 50 Mcg/Act [place] 50 MCG EACH NARE BID for Allergies, #1 BOTTLE 0 Refills Furosemide (Furosemide) 20 Mg Tab 20 MG PO DAILY, #30 TAB 0 Refills Glipizide (Glipizide) 10 Mg Tab 10 MG PO BIDAC for Blood Sugar Management, #180 TAB 1 Refill Take 30 minutes before a meal Hydroxyzine HCl (Hydroxyzine HCl) 25 Mg Tab 25 MG PO HS PRN for ITCHING, #30 TAB 0 Refills Lansoprazole (Prevacid) 30 Mg Capdr 30 MG PO BID, #60 CAP 0 Refills Metformin (Metformin) 1,000 Mg Tab 1000 MG PO BIDPC for Blood Sugar Management, #60 TAB 0 Refills With meals Mirtazapine (Mirtazapine) 15 Mg Tab 15 MG PO HS for Depression Control, #30 TAB 0 Refills Naproxen Sodium (Aleve Arthritis) 220 Mg Tab 220 MG PO BID, #60 TAB 1 Refill Nebulizer (Nebulizer) 1 Mis Mis 1 EA .ROUTE DIRECTED for Breathing Treatment, #1 EA 0 Refills Nebulizer Kit/Tubing/Mout (Nebulizer Kit/Tubing/Mout) 1 Kit Kit 1 KIT .ROUTE DIRECTED for Breathing Treatment, #1 KIT 0 Refills Ondansetron Odt (Ondansetron Odt) 4 Mg Tab 4 MG SL Q6HR PRN for Nausea/Vomiting, #30 TAB 0 Refills Oxycodone (Oxycodone) 5 Mg Tab 5 MG PO BID PRN for PAIN 1 TO 10 AND/OR AGITATION, #30 TAB 0 Refills Oxygen tank (Oxygen tank) 1 Ea Tank 2 LITER LUCILLE.CANULA CONTINUOUS for HYPOXEMIA PREVENTION, #2 CYLINDER 99 Refills Oxygen Concentrator Portable Gaseous 2 L/min via Nasal Cannula Continuous For 99 months Paliperidone ER (Paliperidone ER) 3 Mg Tab 3 MG PO DAILY for Schizophrenia, #90 TAB 0 Refills Rosuvastatin (Rosuvastatin) 5 Mg Tab 5 MG PO DIRECTED for Cholesterol Management, #30 TAB 0 Refills Take 1 tablet PO on Tue/Tuesday Ekta Biswas MD R1 May 10, 2017 11:17
--- NOTE | 2017-05-10 17:18 | ECHRPT ---
Indication: murmur CONCLUSIONS Normal left ventricular size. The left ventricular systolic function is hyperdynamic with an estimated ejection fraction in the ra nge of 70- 75% Trace mitral valve regurgitation. Mild aortic valve regurgitation. Aortic valve area is 2.3 cm. Aortic valve mean gradient is 8 mmHg. There is mild tricuspid valve regurgitation. The estimated pulmonary arterial pressure is 38.7 mmHg. BP: 138 / 82 HR: Rhythm: MEASUREMENTS (Male / Female) Normal Values Technical Quality:Good 2D ECHO LV Diastolic Diameter PLAX 3.6 cm 4.2 - 5.9 / 3.9 - 5.3 cm LV Systolic Diameter PLAX 2.3 cm IVS Diastolic Thickness 1.5 cm 0.6 - 1.0 / 0.6 - 0.9 cm LVPW Diastolic Thickness 1.5 cm 0.6 - 1.0 / 0.6 - 0.9 cm LV Relative Wall Thickness 0.8 RV Internal Dim ED PLAX 2.4 cm LVOT Diameter 1.9 cm Aortic Root Diameter 2.9 cm LA Systolic Diameter LX 2.7 cm 3.0 - 4.0 / 2.7 - 3.8 cm M-MODE AV Cusp Separation MM 1.7 cm DOPPLER AV Peak Velocity 197.0 cm/s AV Peak Gradient 15.5 mmHg AV Mean Gradient 8.0 mmHg AV Velocity Time Integral 33.4 cm AI Peak Velocity 396.0 cm/s AI Peak Gradient 62.7 mmHg AI Pressure Half Time 582.0 ms LVOT Peak Velocity 143.0 cm/s LVOT Peak Gradient 8.2 mmHg LVOT Velocity Time Integral 27.6 cm AV Area Cont Eq vti 2.3 cm AV Area Cont Eq pk 2.1 cm Mitral E Point Velocity 80.8 cm/s Mitral A Point Velocity 141.0 cm/s Mitral E to A Ratio 0.6 LV E' Lateral Velocity 5.1 cm/s Mitral E to LV E' Lateral Ratio 15.8 LV E' Septal Velocity 4.1 cm/s Mitral E to LV E' Septal Ratio 19.8 TR Peak Velocity 268.0 cm/s TR Peak Gradient 28.7 mmHg Right Atrial Pressure 10.0 mmHg Pulmonary Artery Systolic Pressu 38.7 mmHg Right Ventricular Systolic Press 38.7 mmHg PV Peak Velocity 52.6 cm/s PV Peak Gradient 1.1 mmHg FINDINGS LEFT VENTRICLE Normal left ventricular size. The left ventricular systolic function is hyperdynamic with an estimated ejection fraction in the ra nge of 70- 75% RIGHT VENTRICLE Normal right ventricular size and systolic function. LEFT ATRIUM The left atrial size is normal. RIGHT ATRIUM The right atrial size is normal. ATRIAL SEPTUM Normal atrial septal thickness without atrial level shunting by limited color doppler interrogation. AORTA The aortic root and proximal ascending aorta are normal in size on limited imaging. MITRAL VALVE Structurally normal mitral valve. Trace mitral valve regurgitation. AORTIC VALVE Trileaflet aortic valve. Mild aortic valve regurgitation. P 1/2t 582 Aortic valve area is 2.3 cm. Aortic valve mean gradient is 8 mmHg. TRICUSPID VALVE Structurally normal tricuspid valve. There is mild tricuspid valve regurgitation. The estimated pulmonary arterial pressure is 38.7 mmHg. PULMONARY VALVE No pulmonary valve regurgitation or stenosis. VESSELS The inferior vena cava is normal in size. PERICARDIUM No pericardial effusion. Yury Joseph MD (Electronically Signed) Final Date:10 May 2017 17:17
[2017-05-11] MEDS ORDERED: ATORVASTATIN 10 MG TAB PO SCH (09:00)
== END 2017-05-10 17:16 | disposition home or self-care (01) | DRG 683 ==
LOC: NEPC 13:48 → NEDA 19:06 → N04A 21:07
PROVIDERS: ADMIT Family Medicine; ATTEND Family Medicine
DX: N17.9 Acute kidney failure, unspecified (principal); E87.2 Acidosis; I50.9 Heart failure, unspecified; I11.0 Hypertensive heart disease with heart failure; I95.1 Orthostatic hypotension; F25.9 Schizoaffective disorder, unspecified; I25.10 Atherosclerotic heart disease of native coronary artery without angina pectoris; E11.9 Type 2 diabetes mellitus without complications; J44.9 Chronic obstructive pulmonary disease, unspecified; E86.0 Dehydration; M15.9 Polyosteoarthritis, unspecified; K21.9 Gastro-esophageal reflux disease without esophagitis; A08.4 Viral intestinal infection, unspecified; I08.3 Combined rheumatic disorders of mitral, aortic and tricuspid valves; Z21 Asymptomatic human immunodeficiency virus [HIV] infection status; Z72.0 Tobacco use; Z79.84 Long term (current) use of oral hypoglycemic drugs; Z86.19 Personal history of other infectious and parasitic diseases; Z86.73 Personal history of transient ischemic attack (TIA), and cerebral infarction without residual deficits; Z99.81 Dependence on supplemental oxygen
CPT/HCPCS: 71045; 74174; 74177; 80048; 80053; 81001; 82550; 82552; 82948; 83605; 83690; 83735; 84443; 84484; 85025; 85027; 85610; 85730; 87040; 93005; 93308; 96365; 96366; 96368; 96375; J1650; J1815; J2405; J2543; J3370; J7030; J7050; Q9967